=== PATIENT | female | born 1965 | race Caucasian/White ===

== ENCOUNTER 2016-08-01 17:43 | Emergency (ER) | payer MEDICAID ==
[~2016-08-01] VITALS: Ht 175.3 cm; Wt 99.3 kg
[~2016-08-01 17:43] MED LIST: CIPR500T3 PO; CLIN300C93 PO; GABA100C8 PO; GABA300C10 PO; GLIP5TAB10 PO; INSU100I18 SQ-INSULIN; INSU100I28 SQ-INSULIN; INSU100V SC; INSU100V8 SQ; LEVO500T33 PO; METF10002 PO; OXYC1TAB7 PO; OXYC5TAB3 PO; PARO20TA55 PO; VANC1VIA3 PO; [UNRECOGNIZED DRUG - CODE] PO; [UNRECOGNIZED DRUG - OTHER]; [UNRECOGNIZED DRUG - OTHER]
[2016-08-01 17:56] VITALS: BP 119/74
[2016-08-01] MEDS ORDERED: LIDOCAINE 1%, 20ML ONE (18:26)
[2016-08-01] MEDS ORDERED: HYDROcodone/APAP 5/325 TABLET PO ONE (18:30)
[2016-08-01] MEDS ORDERED: LIDOCAINE 1%, 20ML INFIL ONE (18:30)
[2016-08-01] MEDS ORDERED: HYDROcodone/APAP 5/325 TABLET ONE (18:50)
== END 2016-08-01 19:57 | disposition home or self-care (01) ==
LOC: ED 18:44
DX: L02.01 Cutaneous abscess of face (principal); L03.311 Cellulitis of abdominal wall; F12.10 Cannabis abuse, uncomplicated; J45.909 Unspecified asthma, uncomplicated; I10 Essential (primary) hypertension; E11.65 Type 2 diabetes mellitus with hyperglycemia; I25.2 Old myocardial infarction; Z85.118 Personal history of other malignant neoplasm of bronchus and lung; Z88.1 Allergy status to other antibiotic agents; Z88.0 Allergy status to penicillin; Z88.6 Allergy status to analgesic agent; Z88.8 Allergy status to other drugs, medicaments and biological substances
CPT/HCPCS: 10060

== ENCOUNTER → 2016-09-23 | Outpatient (CLI) | payer MEDICAID | END | disposition home or self-care (01) | LOC: RAD 14:45 | PROVIDERS: ATTEND Urology | DX: N20.0 Calculus of kidney (principal) | CPT/HCPCS: 74000 ==

== ENCOUNTER 2016-09-27 02:01 | Emergency (ER) | payer MEDICAID ==
[~2016-09-27] VITALS: Ht 175.3 cm; Wt 90.0 kg
[~2016-09-27 02:01] MED LIST changes: +GABA-826 PO; -GABA100C8 PO
[2016-09-27] MEDS ORDERED: HYDROmorphone 1 MG/ML, 1ML ONE (02:25)
[2016-09-27] MEDS ORDERED: ONDANSETRON ODT 4 MG ONE (02:25)
[2016-09-27] MEDS ORDERED: ONDANSETRON 2MG/ML, 2ML ONE (02:26)
[2016-09-27] MEDS ORDERED: HYDROmorphone 1 MG/ML, 1ML IVPush PRN (02:30)
[2016-09-27] MEDS ORDERED: SODIUM CHLORIDE 0.9% 1,000ML IV ONE (02:30)
[2016-09-27] MEDS ORDERED: ONDANSETRON 2MG/ML, 2ML IVPush ONE (02:30)
[2016-09-27] MEDS ORDERED: SODIUM CHLORIDE FLUSH 10ML SYR IVF ONE (02:30)
[2016-09-27 03:29] LABS: ASPARTATE AMINO TRANSFERASE 32 U/L (15-37); BLOOD UREA NITROGEN 29 mg/dL (7-18)
[2016-09-27] MEDS ORDERED: CEFTRIAXONE PMX 1GM/50ML 50 ML IV ONE (03:30)
[2016-09-27] MEDS ORDERED: CEFTRIAXONE PMX 1GM/50ML 50 ML ONE (03:31)
[2016-09-27 04:25] VITALS: BP 120/63
[2016-09-27] MEDS ORDERED: FLUCONAZOLE 100 MG TABLET PO ONE (04:30)
== END 2016-09-27 05:14 | disposition home or self-care (01) ==
LOC: ED 03:51
DX: N12 Tubulo-interstitial nephritis, not specified as acute or chronic (principal); R31.0 Gross hematuria; E11.65 Type 2 diabetes mellitus with hyperglycemia; I10 Essential (primary) hypertension; J45.909 Unspecified asthma, uncomplicated; N20.0 Calculus of kidney; K57.30 Diverticulosis of large intestine without perforation or abscess without bleeding
CPT/HCPCS: 36415; 74176; 80053; 81001; 83690; 85025; 87086; 87147; 96365; 96375; 99285; J0696; J1170; J2405; J7030

== ENCOUNTER 2017-01-01 22:24 | Emergency (ER) | payer MEDICAID ==
[~2017-01-01] VITALS: Ht 175.3 cm; Wt 103.0 kg
[~2017-01-01 22:24] MED LIST changes: +CLIN300C8 PO; -CLIN300C93 PO; -LEVO500T33 PO; +LEVO500T47 PO; +METF-163 PO; -PARO20TA55 PO; +PARO20TA98 PO; -[UNRECOGNIZED DRUG - CODE] PO
[2017-01-01] MEDS ORDERED: OMNIPAQUE 350 MG/ML, 100ML BOTTLE ONE (23:17)
[2017-01-01] MEDS ORDERED: SODIUM CHLORIDE 0.9% 1,000ML IVBOLUS ONE (23:30)
[2017-01-01] MEDS ORDERED: HYDROcodone/APAP 5/325 TABLET PO ONE (23:30)
[2017-01-01 23:35] LABS: HEMATOCRIT 42.2 % (34.6-47.8); HEMOGLOBIN 14.2 g/dL (11.7-16.4); WHITE BLOOD COUNT 9.9 x10^3/uL (3.4-10)
[2017-01-01 23:43] LABS: BLOOD UREA NITROGEN 20 mg/dL (7-18)
[2017-01-01] MEDS ORDERED: HYDROcodone/APAP 5/325 TABLET ONE (23:43)
[2017-01-02 01:25] VITALS: BP 132/62
[2017-01-02] MEDS ORDERED: CLINDAMYCIN 150 MG CAPSULE PO ONE (01:30)
== END 2017-01-02 02:10 | disposition home or self-care (01) ==
LOC: ED 23:33
DX: L03.213 Periorbital cellulitis (principal); L03.211 Cellulitis of face; I10 Essential (primary) hypertension; J45.909 Unspecified asthma, uncomplicated; E11.65 Type 2 diabetes mellitus with hyperglycemia
CPT/HCPCS: 36415; 70481; 80048; 85025; 96360; 96361; 99285; J7030; Q9967

== ENCOUNTER 2017-04-18 14:21 | Emergency (ER) | payer MEDICAID ==
[~2017-04-18] VITALS: Ht 175.3 cm; Wt 105.9 kg
[2017-04-18 14:26] VITALS: BP 178/90
[2017-04-18] MEDS ORDERED: KETOROLAC 30 MG/1 ML IM ONE (15:30)
[2017-04-18] MEDS ORDERED: OXYcodone/APAP 5/325MG TABLET PO ONE (15:30)
[2017-04-18] MEDS ORDERED: OXYcodone/APAP 5/325MG TABLET ONE (15:40)
[2017-04-18] MEDS ORDERED: KETOROLAC 30 MG/1 ML ONE (15:40)
== END 2017-04-18 16:16 | disposition home or self-care (01) ==
LOC: ED 15:00
DX: S43.402A Unspecified sprain of left shoulder joint, initial encounter (principal); S83.91XA Sprain of unspecified site of right knee, initial encounter; I10 Essential (primary) hypertension; E11.9 Type 2 diabetes mellitus without complications; I21.9 Acute myocardial infarction, unspecified; W19.XXXA Unspecified fall, initial encounter; Y93.89 Activity, other specified; Y92.89 Other specified places as the place of occurrence of the external cause; Y99.8 Other external cause status
CPT/HCPCS: 73030; 73564; 96372; 99284; J1885

== ENCOUNTER 2017-10-27 05:12 | Inpatient (IN) | payer MEDICAID ==
[~2017-10-27] VITALS: Ht 175.3 cm; Wt 116.3 kg
[2017-10-27] MEDS ORDERED: ASPIRIN 81 MG TABLET CHEW ONE (05:46)
[2017-10-27] MEDS ORDERED: ONDANSETRON 2MG/ML, 2ML ONE (05:46)
[2017-10-27] MEDS ORDERED: HYDROmorphone 2 MG/ML, 1ML ONE ×2 (05:46→08:05)
[2017-10-27] MEDS ORDERED: HYDROmorphone 2 MG/ML, 1ML IV ONE (06:00)
[2017-10-27] MEDS ORDERED: ONDANSETRON 2MG/ML, 2ML IVPush ONE (06:00)
[2017-10-27] MEDS ORDERED: SODIUM CHLORIDE FLUSH 10ML SYR IVF ONE (06:00)
[2017-10-27] MEDS ORDERED: ASPIRIN 81 MG TABLET CHEW PO ONE (06:00)
[2017-10-27 06:09] LABS: BASOPHILS # (AUTO) 0.02 x10^3/uL (0-0.1); BASOPHILS % (AUTO) 0 % (0-1); EOSINOPHILS # (AUTO) 0.17 x10^3/uL (0-0.4); EOSINOPHILS % (AUTO) 2 % (1-7); LYMPHOCYTES # (AUTO) 1.19 x10^3/uL (1-3.4); LYMPHOCYTES % (AUTO) 15 % (22-44); MD NO; MEAN CORPUSCULAR HEMOGLOBIN 29.2 pg (27.0-34.8); MEAN CORPUSCULAR HGB CONC 33.8 g/dL (32.4-35.8); MEAN CORPUSCULAR VOLUME 86.4 fL (80-100); MEAN PLATELET VOLUME 8.7 fL (7.4-10.4); MONOCYTES # (AUTO) 0.82 x10^3/uL (0.2-0.8); MONOCYTES % (AUTO) 10 % (2-9); NEUTROPHILS # (AUTO) 6.02 x10^3/uL (1.8-6.8); NEUTROPHILS % (AUTO) 73 % (42-75); PLATELET COUNT 174 x10^3/uL (130-400); RED BLOOD COUNT 4.02 x10^6/uL (3.82-5.3); RED CELL DISTRIBUTION WIDTH 14.2 % (9.6-15.2)
[2017-10-27 06:21] LABS: ALBUMIN 3.1 g/dL (3.4-5.0); ANION GAP 8 mmol/L (5-15); CHLORIDE 108 mmol/L (98-107)
[2017-10-27 06:23] LABS: INTERNATIONAL NORMALIZED RATIO 1.02 (0.93-1.1); PROTHROMBIN TIME 10.6 Seconds (9.6-11.5)
[2017-10-27 06:27] LABS: CREATININE 0.85 mg/dL (0.55-1.02); TROPONIN I 0.039 ng/mL (0.000-0.045)
[2017-10-27] MEDS ORDERED: OMNIPAQUE 350 MG/ML, 100ML BOTTLE ONE (07:02)
[2017-10-27] MEDS ORDERED: HYDROmorphone 1 MG/ML, 1ML IV ONE (08:30)
[2017-10-27] MEDS ORDERED: ONDANSETRON 2MG/ML, 2ML IVPush PRN (09:00)
[2017-10-27] MEDS ORDERED: victoza (09:01)
[2017-10-27] MEDS ORDERED: METF500T5 PO (09:01)
[2017-10-27] MEDS ORDERED: HYDR-3240 PO (09:01)
[2017-10-27 10:42] VITALS: BP 104/67
[2017-10-27 11:22] LABS: TROPONIN I 0.045 ng/mL (0.000-0.045)
[2017-10-27] MEDS: POLYETHYLENE GLYCOL 17 GM PACKET PO SCH (11:23)
[2017-10-27] MEDS: metFORMIN 500 MG TABLET PO SCH ×2 (11:23→21:02)
[2017-10-27] MEDS: SODIUM CHLORIDE FLUSH 10ML SYR IVF SCH ×2 (11:23→21:03)
[2017-10-27] MEDS: INSULIN LISPRO 100 UNITS/ML, PEN SQ-INSULIN SCH ×3 (11:25→21:07)
[2017-10-27] MEDS: ACETAMINOPHEN 325 MG TABLET PO PRN (12:26)
[2017-10-27] MEDS ORDERED: ATOR20TA9 PO (12:38)
[2017-10-27] MEDS ORDERED: LOSA50TA6 PO (12:47)
[2017-10-27] MEDS ORDERED: LIRA0.6P SC (12:47)
[2017-10-27] MEDS ORDERED: FLUO20CA8 PO (12:47)
[2017-10-27] MEDS ORDERED: GABA300C10 PO (12:47)
[2017-10-27] MEDS ORDERED: NAPR-685 PO (12:47)
[2017-10-27] MEDS ORDERED: GLIP5TAB10 PO (12:47)
[2017-10-27] MEDS ORDERED: HYDR50TA13 PO (12:47)
[2017-10-27 13:30] VITALS: BP 131/73
[2017-10-27] MEDS ORDERED: hydrOXyzine 50MG TABLET PO PRN (13:30)
[2017-10-27 14:23] LABS: MICROSCOPIC INDICATED
[2017-10-27 14:27] LABS: CULTURE INDICATED? YES
[2017-10-27] MEDS: GABAPENTIN 300 MG CAPSULE PO SCH ×2 (15:11→21:03)
[2017-10-27] MEDS: HYDROcodone/APAP 5/325 TABLET PO PRN ×2 (15:11→21:03)
[2017-10-27 17:45] LABS: TROPONIN I 0.025 ng/mL (0.000-0.045)
[2017-10-27] MEDS: INSULIN GLARGINE 100 UNITS/ML, PEN SQ-INSULIN SCH (17:54)
[2017-10-27] MEDS: CEFTRIAXONE 2 GM in SODIUM CHLORIDE 0.9% 50 ML IV SCH (18:22)
[2017-10-27 20:34] VITALS: BP 149/84
[2017-10-27] MEDS: ATORVASTATIN 20 MG TABLET PO SCH (21:02)
[2017-10-28 00:14] VITALS: BP 129/77
[2017-10-28] MEDS: HYDROcodone/APAP 5/325 TABLET PO PRN ×4 (02:09→21:31)
[2017-10-28 05:56] LABS: BASOPHILS # (AUTO) 0.01 x10^3/uL (0-0.1); BASOPHILS % (AUTO) 0 % (0-1); EOSINOPHILS % (AUTO) 5 % (1-7); LYMPHOCYTES # (AUTO) 1.74 x10^3/uL (1-3.4); LYMPHOCYTES % (AUTO) 22 % (22-44); MD NO; MEAN CORPUSCULAR HEMOGLOBIN 29.4 pg (27.0-34.8); MEAN CORPUSCULAR VOLUME 86.5 fL (80-100); MEAN PLATELET VOLUME 8.8 fL (7.4-10.4); MONOCYTES # (AUTO) 0.72 x10^3/uL (0.2-0.8); MONOCYTES % (AUTO) 9 % (2-9); NEUTROPHILS # (AUTO) 5.16 x10^3/uL (1.8-6.8); NEUTROPHILS % (AUTO) 64 % (42-75); PLATELET COUNT 173 x10^3/uL (130-400); RED BLOOD COUNT 3.85 x10^6/uL (3.82-5.3)
[2017-10-28 06:09] LABS: CHOL/HDL RATIO 2.7; LDL/HDL RATIO 1.2 (0.5-3.0)
[2017-10-28] MEDS: INSULIN LISPRO 100 UNITS/ML, PEN SQ-INSULIN SCH ×4 (07:00→20:18)
[2017-10-28 07:43] VITALS: BP 118/74
[2017-10-28] MEDS: POLYETHYLENE GLYCOL 17 GM PACKET PO SCH (07:57)
[2017-10-28] MEDS: GABAPENTIN 300 MG CAPSULE PO SCH ×3 (08:10→20:18)
[2017-10-28] MEDS: LOSARTAN 50MG TABLET PO SCH (08:10)
[2017-10-28] MEDS: FLUOXETINE HCL 20 MG CAPSULE PO SCH (08:10)
[2017-10-28] MEDS: SODIUM CHLORIDE FLUSH 10ML SYR IVF SCH ×2 (08:11→20:48)
[2017-10-28] MEDS: TEMPLATE NON-FORMULARY MED. (Liraglutide (Victoza 2-Pak) 1.8 MG) SC SCH (09:00)
[2017-10-28] MEDS ORDERED: REGADENOSON 0.4 MG/5 ML SYRINGE ONE (09:07)
[2017-10-28 12:00] VITALS: BP 136/86
[2017-10-28] MEDS: metFORMIN 500 MG TABLET PO SCH ×2 (12:20→20:18)
[2017-10-28] MEDS: INSULIN GLARGINE 100 UNITS/ML, PEN SQ-INSULIN SCH ×2 (12:22→16:59)
[2017-10-28] MEDS: CEFTRIAXONE 2 GM in SODIUM CHLORIDE 0.9% 50 ML IV SCH (16:59)
[2017-10-28] MEDS: SODIUM CHLORIDE 0.9% 1,000 ML IV SCH (19:00)
[2017-10-28] MEDS: ATORVASTATIN 20 MG TABLET PO SCH (20:18)
[2017-10-28 20:41] VITALS: BP 133/71
[2017-10-28] MEDS: ACETAMINOPHEN 325 MG TABLET PO PRN (23:33)
[2017-10-29 00:20] VITALS: BP 114/71
[2017-10-29] MEDS: HYDROcodone/APAP 5/325 TABLET PO PRN ×3 (05:19→20:54)
[2017-10-29] MEDS: ASPIRIN 81 MG TABLET EC PO SCH (05:19)
[2017-10-29] MEDS: INSULIN LISPRO 100 UNITS/ML, PEN SQ-INSULIN SCH ×4 (07:00→20:58)
[2017-10-29 07:40] VITALS: BP 130/62
[2017-10-29] MEDS: SODIUM CHLORIDE 0.9% 1,000 ML IV SCH ×2 (07:46→17:00)
[2017-10-29] MEDS: INSULIN GLARGINE 100 UNITS/ML, PEN SQ-INSULIN SCH ×2 (08:00→17:49)
[2017-10-29] MEDS: POLYETHYLENE GLYCOL 17 GM PACKET PO SCH (08:22)
[2017-10-29] MEDS: GABAPENTIN 300 MG CAPSULE PO SCH ×3 (08:31→20:54)
[2017-10-29] MEDS: SODIUM CHLORIDE FLUSH 10ML SYR IVF SCH ×2 (08:31→20:53)
[2017-10-29] MEDS: LOSARTAN 50MG TABLET PO SCH (08:31)
[2017-10-29] MEDS: FLUOXETINE HCL 20 MG CAPSULE PO SCH (08:31)
[2017-10-29] MEDS: TEMPLATE NON-FORMULARY MED. (Liraglutide (Victoza 2-Pak) 1.8 MG) SC SCH (08:33)
[2017-10-29] MEDS: metFORMIN 500 MG TABLET PO SCH ×2 (09:00→20:54)
[2017-10-29] MEDS ORDERED: FENTANYL PF 100 MCG/2ML ONE (13:58)
[2017-10-29] MEDS ORDERED: MIDAZOLAM 1 MG/ML, 5ML ONE (13:58)
[2017-10-29] MEDS ORDERED: TICAGRELOR 90 MG TABLET ONE (13:58)
[2017-10-29] MEDS ORDERED: BIVALIRUDIN 250 MG ONE (13:59)
[2017-10-29] MEDS ORDERED: LIDOCAINE-MPF 2% ,5ML ONE (14:33)
[2017-10-29 15:49] VITALS: BP 118/78
[2017-10-29] MEDS: CEFTRIAXONE 2 GM in SODIUM CHLORIDE 0.9% 50 ML IV SCH (18:22)
[2017-10-29 19:49] VITALS: BP 145/82
[2017-10-29] MEDS: ATORVASTATIN 20 MG TABLET PO SCH (20:54)
[2017-10-30 00:36] VITALS: BP 120/78
[2017-10-30] MEDS: HYDROcodone/APAP 5/325 TABLET PO PRN (02:49)
[2017-10-30 05:14] LABS: ALBUMIN 2.6 g/dL (3.4-5.0); ANION GAP 9 mmol/L (5-15); CALCIUM 8.2 mg/dL (8.5-10.1); CHLORIDE 106 mmol/L (98-107)
[2017-10-30] MEDS: ASPIRIN 81 MG TABLET EC PO SCH (05:44)
[2017-10-30 06:50] VITALS: BP 111/65
[2017-10-30] MEDS: POLYETHYLENE GLYCOL 17 GM PACKET PO SCH (07:48)
[2017-10-30] MEDS: INSULIN GLARGINE 100 UNITS/ML, PEN SQ-INSULIN SCH (08:34)
[2017-10-30] MEDS: GABAPENTIN 300 MG CAPSULE PO SCH (08:35)
[2017-10-30] MEDS: LOSARTAN 50MG TABLET PO SCH (08:35)
[2017-10-30] MEDS: metFORMIN 500 MG TABLET PO SCH (08:35)
[2017-10-30] MEDS: TEMPLATE NON-FORMULARY MED. (Liraglutide (Victoza 2-Pak) 1.8 MG) SC SCH (08:35)
[2017-10-30] MEDS: FLUOXETINE HCL 20 MG CAPSULE PO SCH (08:35)
[2017-10-30] MEDS: INSULIN LISPRO 100 UNITS/ML, PEN SQ-INSULIN SCH ×2 (08:35→12:46)
[2017-10-30] MEDS: SODIUM CHLORIDE FLUSH 10ML SYR IVF SCH (08:36)
[2017-10-30 14:20] VITALS: BP 124/83
== END 2017-10-30 15:24 | disposition home or self-care (01) | DRG 286 ==
LOC: ED 06:22 → EDIP 08:11 → 5SO 09:11
PROVIDERS: ADMIT Hospitalist; ATTEND Hospitalist
PROC: 4A023N7 Measurement of Cardiac Sampling and Pressure, Left Heart, Percutaneous Approach (ICD-10-PCS; principal; 2017-10-29)
PROC: B2111ZZ Fluoroscopy of Multiple Coronary Arteries using Low Osmolar Contrast (ICD-10-PCS; 2017-10-29)
PROC: B2151ZZ Fluoroscopy of Left Heart using Low Osmolar Contrast (ICD-10-PCS; 2017-10-29)
DX: R07.9 Chest pain, unspecified (principal); E43 Unspecified severe protein-calorie malnutrition; D64.9 Anemia, unspecified; E11.65 Type 2 diabetes mellitus with hyperglycemia; E66.9 Obesity, unspecified; E78.5 Hyperlipidemia, unspecified; F12.90 Cannabis use, unspecified, uncomplicated; I10 Essential (primary) hypertension; I25.2 Old myocardial infarction; J45.909 Unspecified asthma, uncomplicated; N93.9 Abnormal uterine and vaginal bleeding, unspecified; R31.0 Gross hematuria; Z79.4 Long term (current) use of insulin; Z82.49 Family history of ischemic heart disease and other diseases of the circulatory system; Z83.3 Family history of diabetes mellitus; Z87.442 Personal history of urinary calculi; Z87.891 Personal history of nicotine dependence; Z96.612 Presence of left artificial shoulder joint; Z68.37 Body mass index [BMI] 37.0-37.9, adult
CPT/HCPCS: 36415; 71045; 71275; 76830; 78452; 80048; 80061; 81001; 82040; 82962; 83735; 84100; 84484; 85025; 85610; 87086; 93005; 93017; 93458; 96374; 96375; 96376; 99156; 99285; C1769; C1894; J0583; J0696; J1170; J2250; J2405; J2785; J3010; J3490; Q9967; A9502; C9898; J1815; J7030

== ENCOUNTER 2018-02-02 11:24 | Emergency (ER) | payer MEDICAID ==
[~2018-02-02] VITALS: Ht 175.3 cm; Wt 121.9 kg
[~2018-02-02 11:24] MED LIST changes: +ATOR20TA9 PO; +FLUO20CA8 PO; +HYDR-3240 PO; +HYDR50TA13 PO; +LIRA0.6P SC; +LOSA50TA7 PO; +METF500T17 PO; +NAPR-685 PO; +victoza
[2018-02-02 13:25] VITALS: BP 140/84
== END 2018-02-02 13:28 | disposition home or self-care (01) ==
LOC: ED 13:15
DX: J34.0 Abscess, furuncle and carbuncle of nose (principal); I10 Essential (primary) hypertension; E11.9 Type 2 diabetes mellitus without complications
CPT/HCPCS: 99283

== ENCOUNTER 2018-02-04 07:12 | Inpatient (IN) | payer MEDICAID ==
[~2018-02-04] VITALS: Ht 175.3 cm; Wt 117.6 kg
[2018-02-04] MEDS ORDERED: CEPH-368 PO (07:53)
[2018-02-04] MEDS ORDERED: HYDROmorphone 1 MG/ML, 1ML IV ONE (08:00)
[2018-02-04] MEDS ORDERED: CLINDAMYCIN PMX 900MG/50ML 50 ML IVPB ONE (08:00)
[2018-02-04] MEDS ORDERED: ONDANSETRON 2MG/ML, 2ML IVPush ONE (08:00)
[2018-02-04] MEDS ORDERED: SODIUM CHLORIDE 0.9% 1,000ML IVBOLUS ONE (08:00)
[2018-02-04] MEDS ORDERED: SODIUM CHLORIDE FLUSH 10ML SYR IVF ONE (08:00)
[2018-02-04 08:20] LABS: BASOPHILS % (AUTO) 0 % (0-1); EOSINOPHILS # (AUTO) 0.11 x10^3/uL (0-0.4); EOSINOPHILS % (AUTO) 1 % (1-7); LYMPHOCYTES # (AUTO) 1.29 x10^3/uL (1-3.4); LYMPHOCYTES % (AUTO) 10 % (22-44); MD NO; MEAN CORPUSCULAR HEMOGLOBIN 28.6 pg (27.0-34.8); MEAN CORPUSCULAR HGB CONC 33.3 g/dL (32.4-35.8); MEAN CORPUSCULAR VOLUME 85.8 fL (80-100); MEAN PLATELET VOLUME 8.8 fL (7.4-10.4); MONOCYTES # (AUTO) 1.13 x10^3/uL (0.2-0.8); MONOCYTES % (AUTO) 9 % (2-9); NEUTROPHILS # (AUTO) 10.21 x10^3/uL (1.8-6.8); NEUTROPHILS % (AUTO) 80 % (42-75); PLATELET COUNT 225 x10^3/uL (130-400); RED BLOOD COUNT 4.39 x10^6/uL (3.82-5.3); RED CELL DISTRIBUTION WIDTH 14.2 % (9.6-15.2)
[2018-02-04 08:28] LABS: ALBUMIN 3.2 g/dL (3.4-5.0); ANION GAP 7 mmol/L (5-15); CALCIUM 8.8 mg/dL (8.5-10.1); CHLORIDE 102 mmol/L (98-107); CREATININE 0.78 mg/dL (0.55-1.02)
[2018-02-04] MEDS ORDERED: ONDANSETRON 2MG/ML, 2ML ONE (08:38)
[2018-02-04] MEDS ORDERED: HYDROmorphone 2 MG/ML, 1ML ONE (08:39)
[2018-02-04] MEDS ORDERED: CLINDAMYCIN PMX 900MG/50ML 50 ML ONE (08:39)
[2018-02-04] MEDS ORDERED: LABETALOL 5MG/ML, 20ML IVPush PRN (13:30)
[2018-02-04] MEDS ORDERED: TRAZODONE 50MG TABLET PO PRN (13:30)
[2018-02-04] MEDS ORDERED: ONDANSETRON ODT 4 MG PO PRN (13:30)
[2018-02-04] MEDS ORDERED: ACETAMINOPHEN 325 MG TABLET PO PRN (13:30)
[2018-02-04] MEDS ORDERED: ONDANSETRON 2MG/ML, 2ML IVPush PRN (13:30)
[2018-02-04 14:00] VITALS: BP 144/84
[2018-02-04 14:16] LABS: HEMOGLOBIN A1C 9.3 % (4.2-6.3)
[2018-02-04] MEDS: GABAPENTIN 300 MG CAPSULE PO SCH ×2 (15:11→21:15)
[2018-02-04] MEDS: CLINDAMYCIN PMX 900MG/50ML 50 ML IV SCH (16:24)
[2018-02-04] MEDS: INSULIN LISPRO 100 UNITS/ML, PEN SQ-INSULIN SCH ×2 (17:15→21:15)
[2018-02-04 20:00] VITALS: BP 140/82
[2018-02-04] MEDS: INSULIN GLARGINE 100 UNITS/ML, PEN SQ-INSULIN SCH (21:16)
[2018-02-05] MEDS: CLINDAMYCIN PMX 900MG/50ML 50 ML IV SCH ×3 (00:28→19:18)
[2018-02-05 01:46] VITALS: BP 117/77
[2018-02-05 05:33] LABS: BASOPHILS # (AUTO) 0.01 x10^3/uL (0-0.1); BASOPHILS % (AUTO) 0 % (0-1); EOSINOPHILS # (AUTO) 0.14 x10^3/uL (0-0.4); EOSINOPHILS % (AUTO) 1 % (1-7); LYMPHOCYTES # (AUTO) 1.68 x10^3/uL (1-3.4); LYMPHOCYTES % (AUTO) 16 % (22-44); MD NO; MEAN CORPUSCULAR HEMOGLOBIN 29.1 pg (27.0-34.8); MEAN CORPUSCULAR HGB CONC 33.6 g/dL (32.4-35.8); MEAN CORPUSCULAR VOLUME 86.4 fL (80-100); MEAN PLATELET VOLUME 8.9 fL (7.4-10.4); MONOCYTES # (AUTO) 1.14 x10^3/uL (0.2-0.8); MONOCYTES % (AUTO) 11 % (2-9); NEUTROPHILS # (AUTO) 7.61 x10^3/uL (1.8-6.8); NEUTROPHILS % (AUTO) 72 % (42-75); PLATELET COUNT 226 x10^3/uL (130-400); RED BLOOD COUNT 4.08 x10^6/uL (3.82-5.3); RED CELL DISTRIBUTION WIDTH 14.6 % (9.6-15.2)
[2018-02-05 05:41] LABS: ALBUMIN 2.5 g/dL (3.4-5.0); ANION GAP 10 mmol/L (5-15); CALCIUM 8.4 mg/dL (8.5-10.1); CHLORIDE 101 mmol/L (98-107)
[2018-02-05 05:46] LABS: ALANINE AMINOTRANSFERASE 26 U/L (12-78); ALKALINE PHOSPHATASE 90 U/L (45-117); BILIRUBIN,TOTAL 0.4 mg/dL (0.2-1.0); CREATININE 0.79 mg/dL (0.55-1.02)
[2018-02-05 07:22] VITALS: BP 111/73
[2018-02-05] MEDS: FLUOXETINE HCL 20 MG CAPSULE PO SCH (09:00)
[2018-02-05] MEDS: GABAPENTIN 300 MG CAPSULE PO SCH ×3 (09:00→21:04)
[2018-02-05] MEDS: LOSARTAN 50MG TABLET PO SCH (09:00)
[2018-02-05] MEDS: INSULIN LISPRO 100 UNITS/ML, PEN SQ-INSULIN SCH ×4 (09:03→21:04)
[2018-02-05] MEDS: INSULIN GLARGINE 100 UNITS/ML, PEN SQ-INSULIN SCH ×2 (09:03→21:04)
[2018-02-05 14:15] VITALS: BP 109/71
[2018-02-05 19:44] VITALS: BP 118/72
[2018-02-06 02:13] VITALS: BP 114/71
[2018-02-06] MEDS: CLINDAMYCIN PMX 900MG/50ML 50 ML IV SCH ×2 (03:12→11:48)
[2018-02-06] MEDS: INSULIN LISPRO 100 UNITS/ML, PEN SQ-INSULIN SCH ×2 (07:00→11:48)
[2018-02-06 07:43] VITALS: BP 103/64
[2018-02-06] MEDS: FLUOXETINE HCL 20 MG CAPSULE PO SCH (08:24)
[2018-02-06] MEDS: LOSARTAN 50MG TABLET PO SCH (08:24)
[2018-02-06] MEDS: GABAPENTIN 300 MG CAPSULE PO SCH (08:24)
[2018-02-06] MEDS: INSULIN GLARGINE 100 UNITS/ML, PEN SQ-INSULIN SCH (08:25)
[2018-02-06] MEDS ORDERED: TRAM50TA2 PO (09:27)
== END 2018-02-06 13:34 | disposition home or self-care (01) | DRG 155 ==
LOC: ED 09:28 → EDIP 11:37 → 3NW 13:15 → 3NE 20:11
PROVIDERS: ADMIT Internal Medicine; ATTEND Internal Medicine
DX: J34.0 Abscess, furuncle and carbuncle of nose (principal); J98.11 Atelectasis; L03.211 Cellulitis of face; E11.40 Type 2 diabetes mellitus with diabetic neuropathy, unspecified; F32.9 Major depressive disorder, single episode, unspecified; I10 Essential (primary) hypertension; I25.10 Atherosclerotic heart disease of native coronary artery without angina pectoris; I25.2 Old myocardial infarction; R09.02 Hypoxemia; K57.90 Diverticulosis of intestine, part unspecified, without perforation or abscess without bleeding; F12.10 Cannabis abuse, uncomplicated; F10.10 Alcohol abuse, uncomplicated; B37.9 Candidiasis, unspecified; T36.95XA Adverse effect of unspecified systemic antibiotic, initial encounter; Y92.89 Other specified places as the place of occurrence of the external cause; F17.210 Nicotine dependence, cigarettes, uncomplicated; Z79.4 Long term (current) use of insulin; Z86.14 Personal history of Methicillin resistant Staphylococcus aureus infection; Z79.84 Long term (current) use of oral hypoglycemic drugs; Z88.0 Allergy status to penicillin; Z88.2 Allergy status to sulfonamides; Z88.8 Allergy status to other drugs, medicaments and biological substances; Z88.5 Allergy status to narcotic agent
CPT/HCPCS: 36415; 80048; 80053; 82040; 82962; 83036; 83605; 84145; 85025; 87040; 90656; 96365; 96366; 96375; G0378; J1170; J2405; J1815; J7030

== ENCOUNTER 2019-11-02 17:44 | Emergency (ER) | payer MEDICAID ==
[~2019-11-02] VITALS: Ht 175.3 cm; Wt 96.2 kg
[~2019-11-02 17:44] MED LIST changes: +ATOR20TA37 PO; -ATOR20TA9 PO; +CEPH-368 PO; +FLUO20CA23 PO; -FLUO20CA8 PO; -HYDR50TA13 PO; +HYDR50TA99 PO; +LOSA50TA14 PO; -LOSA50TA7 PO; +TRAM50TA2 PO
[2019-11-02] MEDS ORDERED: HYDROmorphone 1 MG/ML, 1ML INJ IM STA (18:13)
--- NOTE | 2019-11-02 18:55 | NUR ---
MICHAEL REPORT FROM MATTHEW JONAS. PT CARE TRANSFERRED AT THIS TIME.
[2019-11-02] MEDS ORDERED: HYDROmorphone 1 MG/ML, 1ML INJ ONE ×2 (18:58→20:50)
--- NOTE | 2019-11-02 19:12 | NUR ---
LATE ENTRY: FIRST PT CONTACT, PT LAYING ON LEFT SIDE IN [place], PT REPORTS FALLING DOWN STAIRS AND FEELING LARGE HEMATOMA ON HIP. PT HAS BRUISING ALONG RIGHT HIP/THIGH. PT REPORTS SIGNIFICANT AMOUNTS OF PAIN, PT IS MOANING. NICOLE SMITH, P/W/D, PT ASSISTED ON TO FRACTURE OLEA TO URINATE. WAITING FOR CT. WCJUSTYN. Addendum: 11/02/19 at 1 by CASPER LEFT SIDE, NOT RIGHT
--- NOTE | 2019-11-02 19:14 | NUR ---
PT MEDICATED PER MAR FOR PAIN. NO OTHER CHANGE IN CONDITION, NAD, WAITING FOR CT, WCTM.
[2019-11-02] MEDS ORDERED: DIET PILL PO (19:18)
[2019-11-02] MEDS ORDERED: PROMETHAZINE 25 MG/ML, 1ML IM STA (19:26)
[2019-11-02] MEDS ORDERED: PROMETHAZINE 25 MG/ML, 1ML ONE (19:36)
--- NOTE | 2019-11-02 19:40 | NUR ---
PT MEDICATED PER MAR FOR NAUSEA. PT RESTING IN GURNEY, WATCHING TV, NAD, NAUSEA AND PAIN DECREASED, PT DENIES ADDITIONAL NEEDS, NO OTHER CHANGES IN CONDITION. WCTM. WAITING FOR CT.
--- NOTE | 2019-11-02 20:20 | NUR ---
PT BACK FROM CT, NO CHANGE IN CONDITION, NAD, WATCHING TV, VSS. WCTM. WAITING FOR CT RESULTS
[2019-11-02] MEDS ORDERED: OXYcodone/APAP 5/325MG TABLET ONE (21:17)
[2019-11-02] MEDS ORDERED: OXYcodone/APAP 5/325MG TABLET PO ONE (21:30)
[2019-11-02 21:33] VITALS: BP 101/58
--- NOTE | 2019-11-02 21:34 | NUR ---
Patient given discharge instructions and they have confirmed that they understand the instructions. Patient ambulatory with steady gait. PT GIVEN TAXI VOUCHER PER REQUEST. PT NAD, P/W/D, DENIES ADDITIONAL QUESTIONS OR NEEDS AT THIS TIME. NO BELONGINGS LEFT IN ROOM AT TIME OF DC.
== END 2019-11-02 21:35 | disposition home or self-care (01) ==
LOC: ED 21:27
DX: S30.0XXA Contusion of lower back and pelvis, initial encounter (principal); R42 Dizziness and giddiness; E11.9 Type 2 diabetes mellitus without complications; I25.2 Old myocardial infarction; W01.0XXA Fall on same level from slipping, tripping and stumbling without subsequent striking against object, initial encounter; Y93.89 Activity, other specified; Y92.009 Unspecified place in unspecified non-institutional (private) residence as the place of occurrence of the external cause; Y99.8 Other external cause status
CPT/HCPCS: 70450; 72131; 72192; 96372; 99285; J1170; J2550

== ENCOUNTER 2020-05-30 10:31 | Emergency (ER) | payer MEDICAID ==
[~2020-05-30] VITALS: Ht 172.7 cm; Wt 90.2 kg
[~2020-05-30 10:31] MED LIST changes: -CIPR500T3 PO; +CIPR500T4 PO; -CLIN300C8 PO; +CLIN300C9 PO; +DIET PILL PO; +HYDR-1067 PO; -HYDR-3240 PO; -OXYC5TAB3 PO; +OXYC5TAB98 PO
--- NOTE | 2020-05-30 10:58 | NUR ---
RAD IN ROOM.
[2020-05-30] MEDS ORDERED: OXYcodone/APAP 5/325MG TABLET PO ONE (11:00)
--- NOTE | 2020-05-30 11:00 | NUR ---
ICE APPLIED TO RT ANKLE.
[2020-05-30] MEDS ORDERED: OXYcodone/APAP 5/325MG TABLET ONE (11:12)
[2020-05-30 11:41] VITALS: BP 128/71
--- NOTE | 2020-05-30 12:29 | NUR ---
PT INSTRUCTED ON CRUTCH USE W/ RT ANKLE INJ.
--- NOTE | 2020-05-30 12:30 | NUR ---
Patient given discharge instructions and they have confirmed that they understand the instructions. Patient ambulatory with steady gait using crutches.
== END 2020-05-30 12:37 | disposition home or self-care (01) ==
LOC: ED 12:20
DX: G89.11 Acute pain due to trauma (principal); M79.672 Pain in left foot; I10 Essential (primary) hypertension; E11.9 Type 2 diabetes mellitus without complications; I25.2 Old myocardial infarction; J45.909 Unspecified asthma, uncomplicated; Z90.89 Acquired absence of other organs
CPT/HCPCS: 99283